=== PATIENT | female | born 1950 | race American Indian/Alaskan Native ===

== ENCOUNTER 2018-03-16 20:11 | Emergency (ER) | payer MEDICARE, OTHER ==
[~2018-03-16] VITALS: Ht 149.9 cm; Wt 86.5 kg
[~2018-03-16 20:11] MED LIST: ASPI-1265 PO; ATOR20TA PO; CETI10TA18 PO; CHOL400C8 PO; FISH12002 PO; HYDR-569 PO; LEVO500T89 PO; LOSA50TA3 PO; METF500T4 PO; SOLI5TAB2 PO
[2018-03-16] MEDS ORDERED: TETanus/Pertussis (Acell)/Diphther VAC/PF (Tdap-Adult) 0.5ml syringe IM ONE (21:05)
[2018-03-16] MEDS ORDERED: BUPIVAcaine/PF 2.5 mg/ml (0.25%) 30ml vial IJ ONE (21:05)
[2018-03-16] MEDS ORDERED: rabies immune globulin/PF 150 unit/ml inj IMVAC STA (21:58)
[2018-03-16] MEDS ORDERED: rabies vaccine (PCEC)/PF 2.5 unit kit IMVAC ONE (22:00)
[2018-03-16] MEDS ORDERED: AMOX-422 PO (22:05)
[2018-03-16] MEDS ORDERED: amox tr/potassium clavulanate 875/125mg TAB PO ONE (22:30)
[2018-03-16 22:37] VITALS: BP 128/70
== END 2018-03-16 22:38 | disposition home or self-care (01) ==
LOC: ER 20:11
DX: S61.512A Laceration without foreign body of left wrist, initial encounter (principal); Z79.82 Long term (current) use of aspirin; Z79.899 Other long term (current) drug therapy; W54.0XXA Bitten by dog, initial encounter; Y93.89 Activity, other specified; Y92.89 Other specified places as the place of occurrence of the external cause; Y99.8 Other external cause status
CPT/HCPCS: 12002; 90375; 90471; 90472; 90675; 90715; 96372; 99284; A6449; J3490

== ENCOUNTER 2018-09-23 08:52 | Day surgery (SDC) | payer MEDICARE, OTHER ==
[2018-09-19 11:17] LABS: BASOPHILS % (AUTO) 0.6 % (0-1); EOSINOPHILS # (AUTO) 0.3 X10'3 (0-0.9); EOSINOPHILS % (AUTO) 5.4 % (0-6); LYMPHOCYTES # (AUTO) 1.4 X10'3 (1.1-4.8); LYMPHOCYTES % (AUTO) 28.9 % (21-51); MEAN CORPUSCULAR HEMOGLOBIN 29.8 PG (27.0-31.0); MEAN CORPUSCULAR HGB CONC 33.7 % (33.0-36.5); MEAN CORPUSCULAR VOLUME 88.3 FL (78-98); MEAN PLATELET VOLUME 8.1 FL (7.4-10.4); MONOCYTES # (AUTO) 0.4 X10'3 (0-0.9); NEUTROPHILS # (AUTO) 2.6 X10'3 (1.8-7.7); NEUTROPHILS % (AUTO) 56.1 % (42-75); PRE OP HEMATOCRIT 42.6 % (35.0-45.0); PRE OP HEMOGLOBIN 14.4 g/dL (12.0-16.0); PRE OP PLATELET COUNT 287 X10'3 (140-440); RED BLOOD COUNT 4.83 X10'6 (4.20-5.60); RED CELL DISTRIBUTION WIDTH 12.7 % (11.5-14.5)
[2018-09-19 11:29] LABS: PRE OP PROTIME 10.4 SECONDS (9.0-12.0)
[2018-09-19 11:31] LABS: ALBUMIN 3.8 G/DL (3.4-5.0); ALBUMIN/GLOBULIN RATIO 0.9 (1.1-1.5); ALKALINE PHOSPHATASE 103 IU/L (46-116); BLOOD UREA NITROGEN 21 MG/DL (7-18); BUN/CREATININE RATIO 32.3 (6.6-38.0); CHLORIDE 107 MMOL/L (99-107); CREATININE 0.65 MG/DL (0.40-0.90); PRE OP ALT 39 U/L (30-65); PRE OP ANION GAP 7 (8-16); PRE OP AST 31 U/L (10-37); PRE OP BILIRUB, TOTAL 1.5 MG/DL (0.0-1.0); PRE OP GLUCOSE 88 MG/DL (70-104); PRE OP SODIUM 144 MMOL/L (135-145); TOTAL CARBON DIOXIDE 30.5 MMOL/L (24-32); TOTAL PROTEIN 7.9 G/DL (6.4-8.2); eGFR 90 ML/MIN
[2018-09-19 12:00] LABS: PRE OP POTASSIUM 4.1 MMOL/L (3.4-5.1)
[2018-09-23] VITALS (16 sets, daily range): BP systolic 108–145; BP diastolic 32–66
[~2018-09-23] VITALS: Ht 149.9 cm; Wt 85.6 kg
[~2018-09-23 08:52] MED LIST changes: +HYDR-4383 PO; -HYDR-569 PO; -LEVO500T89 PO; +METF-436 PO; -METF500T4 PO; +MIRA25TA PO; -SOLI5TAB2 PO; +ceFOXitin 2 GM ADDvantage bag 100 ML IV ONE; +famotidine 20mg tablet PO ONE; +ringers solution, lacted 1,000 ML IV SCH
[2018-09-23] MEDS ORDERED: LIDOcaine 1% (10mg/ml) 2ml vial ONE (09:04)
[2018-09-23] MEDS ORDERED: LIDOcaine 1% 30ml preserv. free vial ONE (10:37)
[2018-09-23] MEDS ORDERED: morphine 10mg/ml inj. ONE (10:37)
[2018-09-23] MEDS ORDERED: ceFAZolin 1000mg inj ONE (10:37)
[2018-09-23] MEDS ORDERED: vasoPRESSIN 20 units/ml inj. ONE (10:37)
[2018-09-23] MEDS ORDERED: clindamycin phosphate 40gm vag cream ONE (10:37)
[2018-09-23] MEDS ORDERED: BUPIVAcaine/PF 2.5mg/ml (0.25%) 10ml vial ONE (10:37)
[2018-09-23] MEDS ORDERED: fluoroscein sod 10% (100mg/ml) 5ml vial ONE (11:11)
[2018-09-23] MEDS ORDERED: sevoflurane 250ml liquid IH ONE (11:11)
[2018-09-23] MEDS ORDERED: fentaNYL /PF 50mcg/ml 5ml ampule ONE (11:12)
[2018-09-23] MEDS ORDERED: midazolam 2 mg/2 ml injection ONE (11:12)
[2018-09-23] MEDS ORDERED: neostigmine methylsulfate 1 MG/ML 10ml vial ONE (12:07)
[2018-09-23] MEDS ORDERED: rocuronium 10mg/ml inj IV ONE ×2 (12:07→12:48)
[2018-09-23] MEDS ORDERED: ePHEDrine 50MG/ML INJ. ONE ×2 (12:07→12:53)
[2018-09-23] MEDS ORDERED: ondansetron/PF 4mg/2ml inj ONE (12:07)
[2018-09-23] MEDS ORDERED: dexamethasone sod phosphate 4mg/ml inj. ONE (12:07)
[2018-09-23] MEDS ORDERED: glycopyrrolate 0.2mg/ml inj ONE (12:07)
[2018-09-23] MEDS ORDERED: LIDOcaine 2% (20mg/ml) 5ml vial ONE (12:07)
[2018-09-23] MEDS ORDERED: propofol inj 20 ML IV ONE (12:07)
[2018-09-23] MEDS ORDERED: ringers solution, lacted 1,000 ML IV SCH (12:42)
[2018-09-23] MEDS ORDERED: HYDROmorphone inj. 0.5 MG/0.5 ML DISP.SYRIN IV PRN ×2 (12:45)
[2018-09-23] MEDS ORDERED: morphine 4 MG/ML inj SYRINge IV PRN (12:45)
[2018-09-23] MEDS ORDERED: ondansetron/PF 4mg/2ml inj IV PRN ×2 (12:45→13:50)
[2018-09-23] MEDS: ringers solution, lacted 1,000 ML IV SCH ×2 (13:46→20:03)
[2018-09-23] MEDS ORDERED: diphenhydrAMINE 50 mg/ml inj IV PRN (13:50)
[2018-09-23] MEDS ORDERED: magnesium hydroxide 30ml (MOM) UD suspension PO PRN (13:50)
[2018-09-23] MEDS ORDERED: HYDROcodone/acetaminophen 5mg/325mg tablet PO PRN ×2 (13:50)
[2018-09-23] MEDS ORDERED: ketorolac tromethamine 15mg/ml inj. IV PRN (13:50)
[2018-09-23] MEDS ORDERED: CADD PCA waste documentation MC PRN (13:50)
[2018-09-23] MEDS ORDERED: naloxone 0.4 mg/ml inj IV PRN (13:50)
[2018-09-23] MEDS ORDERED: normal saline 500ml IV soln 500 ML IV PRN (13:50)
[2018-09-23] MEDS ORDERED: temazepam 15mg capsule PO PRN (13:50)
[2018-09-23] MEDS: HYDROmorphone/NS 1 mg/ml CADD 50 ML IV SCH ×5 (14:37→23:00)
[2018-09-23] MEDS: simethicone 80mg chew tab PO SCH (18:04)
[2018-09-23] MEDS: docusate sod 100mg capsule PO SCH (19:07)
[2018-09-24 00:01] VITALS: BP 131/47
[2018-09-24] MEDS: HYDROmorphone/NS 1 mg/ml CADD 50 ML IV SCH ×5 (01:00→09:00)
[2018-09-24] MEDS: ringers solution, lacted 1,000 ML IV SCH ×2 (03:48→12:06)
[2018-09-24 06:01] LABS: BASOPHILS % (AUTO) 0.4 % (0-1); EOSINOPHILS # (AUTO) 0.1 X10'3 (0-0.9); EOSINOPHILS % (AUTO) 0.9 % (0-6); HEMATOCRIT 33.4 % (35.0-45.0); HEMOGLOBIN 11.2 g/dl (12.0-16.0); LYMPHOCYTES # (AUTO) 1.3 X10'3 (1.1-4.8); LYMPHOCYTES % (AUTO) 13.7 % (21-51); MEAN CORPUSCULAR HEMOGLOBIN 29.9 PG (27.0-31.0); MEAN CORPUSCULAR HGB CONC 33.5 % (33.0-36.5); MEAN CORPUSCULAR VOLUME 89.2 FL (78-98); MEAN PLATELET VOLUME 8.5 FL (7.4-10.4); MONOCYTES # (AUTO) 0.7 X10'3 (0-0.9); MONOCYTES % (AUTO) 7.5 % (2-12); NEUTROPHILS # (AUTO) 7.1 X10'3 (1.8-7.7); NEUTROPHILS % (AUTO) 77.5 % (42-75); PLATELET COUNT 212 X10'3 (140-440); RED BLOOD COUNT 3.75 X10'6 (4.20-5.60); RED CELL DISTRIBUTION WIDTH 12.5 % (11.5-14.5); WHITE BLOOD COUNT 9.1 X10'3 (4.5-11.0)
[2018-09-24 07:30] VITALS: BP 140/74
[2018-09-24] MEDS ORDERED: losartan 25mg tablet PO SCH (08:00)
[2018-09-24] MEDS ORDERED: atorvastatin 20mg tablet PO SCH (08:00)
[2018-09-24] MEDS ORDERED: metFORMIN 500mg tablet PO SCH (08:00)
[2018-09-24] MEDS ORDERED: cetirizine 10mg tablet PO SCH (08:00)
[2018-09-24] MEDS: simethicone 80mg chew tab PO SCH ×3 (09:19→18:12)
[2018-09-24] MEDS: docusate sod 100mg capsule PO SCH (09:19)
[2018-09-24 11:58] VITALS: BP 109/42
[2018-09-24 18:30] VITALS: BP 123/54
== END 2018-09-24 18:55 | disposition home or self-care (01) ==
LOC: PAS 08:52 → SUR 3N 13:46 → PAS 09-24 18:55
PROVIDERS: ATTEND Specialist
DX: N72 Inflammatory disease of cervix uteri (principal); N80.0 Endometriosis of uterus; D25.9 Leiomyoma of uterus, unspecified; N81.11 Cystocele, midline; N81.5 Vaginal enterocele; N39.46 Mixed incontinence; N81.6 Rectocele; K43.2 Incisional hernia without obstruction or gangrene; N73.6 Female pelvic peritoneal adhesions (postinfective); M19.90 Unspecified osteoarthritis, unspecified site; E11.9 Type 2 diabetes mellitus without complications; G43.909 Migraine, unspecified, not intractable, without status migrainosus; E66.9 Obesity, unspecified; J45.998 Other asthma; I10 Essential (primary) hypertension; G60.0 Hereditary motor and sensory neuropathy; Z68.38 Body mass index [BMI] 38.0-38.9, adult; Z72.89 Other problems related to lifestyle; Z86.19 Personal history of other infectious and parasitic diseases; Z90.49 Acquired absence of other specified parts of digestive tract; Z79.01 Long term (current) use of anticoagulants; Z79.82 Long term (current) use of aspirin; Z79.1 Long term (current) use of non-steroidal anti-inflammatories (NSAID); Z79.891 Long term (current) use of opiate analgesic; Z79.84 Long term (current) use of oral hypoglycemic drugs; Z86.11 Personal history of tuberculosis; Z79.899 Other long term (current) drug therapy; Z98.890 Other specified postprocedural states; Z83.3 Family history of diabetes mellitus
CPT/HCPCS: 36415; 57260; 57283; 57288; 58552; 80053; 82948; 83036; 85025; 85610; 85730; 86885; 86900; 86901; 87070; C1771; J0690; J0694; J1100; J1170; J1885; J2001; J2250; J2270; J2405; J2704; J2710; J3010; J3490; J7030; J7120; A4315; A4355; A6250; A7000; G0378

== ENCOUNTER 2019-03-02 09:17 | Emergency (ER) | payer MEDICARE, OTHER ==
[~2019-03-02] VITALS: Ht 149.9 cm; Wt 83.2 kg
[~2019-03-02 09:17] MED LIST changes: -ceFOXitin 2 GM ADDvantage bag 100 ML IV ONE; -famotidine 20mg tablet PO ONE; -ringers solution, lacted 1,000 ML IV SCH
[2019-03-02 09:31] VITALS: BP 127/63
[2019-03-08] MEDS ORDERED: CHOL10002 PO (00:25)
[2019-03-08] MEDS ORDERED: OMEG1CAP13 PO (00:25)
== END 2019-03-02 10:43 | disposition home or self-care (01) ==
LOC: ER 09:18
DX: T81.89XA Other complications of procedures, not elsewhere classified, initial encounter (principal); K46.9 Unspecified abdominal hernia without obstruction or gangrene; Z98.890 Other specified postprocedural states; Z79.82 Long term (current) use of aspirin; Z79.84 Long term (current) use of oral hypoglycemic drugs; Z79.899 Other long term (current) drug therapy; Y83.8 Other surgical procedures as the cause of abnormal reaction of the patient, or of later complication, without mention of misadventure at the time of the procedure; Y92.89 Other specified places as the place of occurrence of the external cause
CPT/HCPCS: 99283; 99285

== ENCOUNTER 2019-03-07 20:16 | Inpatient (IN) | payer MEDICARE, OTHER | END 2019-03-19 14:30 | LOC: SUR 3N 03-11 15:05 → ER 20:16 → SUR 3N 03-11 20:52 | PROC: 0W9F0ZZ Drainage of Abdominal Wall, Open Approach (ICD-10-PCS; principal; 2019-03-09 08:29) | DX: L02.211 Cutaneous abscess of abdominal wall (principal); E43 Unspecified severe protein-calorie malnutrition; E11.9 Type 2 diabetes mellitus without complications; D64.9 Anemia, unspecified; Z68.37 Body mass index [BMI] 37.0-37.9, adult ==